=== PATIENT | male | born 1990 | race Caucasian/White ===

== ENCOUNTER → 2018-06-21 14:11 | Outpatient (CLI) | payer OTHER, SELFPAY ==
--- NOTE | 2018-06-21 | DI.US.S_ITS ---
PROCEDURE: US SCROTUM INDICATIONS: SCROTAL PAIN TECHNIQUE: Real-time scanning was performed of the scrotum and testicles, with image documentation. Color and pulse Doppler interrogation was performed of both testicles. COMPARISON: None. FINDINGS: Right: Testicle is normal in size at 3.1 x 3.4 x 5.0 cm, and homogenous in echotexture. Epididymis is normal in overall size and morphology. No hydrocele or varicoceles. Overlying scrotal skin is normal in thickness. Left: Testicle is normal in size at 2.7 x 4.0 x 4.8 cm, and homogeneous in echotexture. Epididymis is normal in overall size and morphology. No hydrocele or varicoceles. Overlying scrotal skin is normal in thickness. Doppler: Color and pulse Doppler demonstrate normal and symmetric arterial flow in both testicles. IMPRESSION: Source of asymmetric right-sided scrotal pain for approximately 6 months is not found. No varicocele is identified, no hydrocele is found. No inflammation is identified. Normal appearing blood flow. Dictated by: Carlos Baker M.D. on 06/21/2018 at 15:35 Approved by: Carlos Baker M.D. on 06/21/2018 at 15:36
== END ==
PROVIDERS: Visit Provider Specialist
DX: N50.82 Scrotal pain (principal)
CPT/HCPCS: 76870